=== PATIENT | female | born 1950 | race Caucasian/White ===

== ENCOUNTER 2022-03-12 00:08 | Inpatient (IN) ==
[2022-03-12] MEDS ORDERED: IOPAMIDOL 100 ML BOTTLE IV ONE (00:09)
--- NOTE | 2022-03-12 00:12 | Emergency Department Note ---
HPI General Chief complaint: Extremity Problem,Nontraumatic Stated complaint: left leg feels funny after low blood sugar Time Seen by Provider: 03/12/22 00:12 Mode of arrival: ambulatory History of Present Illness HPI Narrative: Narrative: Patient is a 71-year-old female with a complex medical history who presents to the emergency department due to concern for stroke. Patient states that she had a hypoglycemic event last night that EMS was called for, but she was able to correct her blood sugar. She states that she went to sleep at 10 PM, and then at 11 woke up and had a heaviness in her left leg. She states that this continue, and she became concerned because she has had strokes previously, so decided to come to the emergency department to be evaluated. She denies any other symptoms currently. Related Data Home Medications Medication Instructions Recorded Confirmed metoprolol succinate 50 mg capsule 50 mg PO BID 01/27/19 03/12/22 sprinkle, ext. release 24 hr ([place] Sprinkle) buspirone 5 mg tablet 5 mg PO TID 03/12/22 03/12/22 cetirizine 10 mg tablet (Zyrtec) 10 mg PO QDAY 03/12/22 03/12/22 diphenhydramine HCl 50 mg capsule 75 mg PO PRN PRN Allergic Reaction 03/12/22 03/12/22 ergocalciferol (vitamin D2) 1,250 50,000 unit PO WEEKLY 03/12/22 03/12/22 mcg (50,000 unit) capsule levocetirizine 5 mg tablet 5 mg PO QDAY 03/12/22 03/12/22 nystatin 100,000 unit/gram topical 1 applic topical BID 03/12/22 03/12/22 cream prednisone 03/12/22 Previous Rx's Medication Instructions Recorded lancets #200 ea 02/01/19 Diabetic shoes #1 ea 01/17/20 blood-glucose meter,continuous #1 ea 04/04/20 (Dexcom G6 [place] misc) blood-glucose sensor (Dexcom G6 #3 ea 04/04/20 Sensor device) blood-glucose transmitter (Dexcom #1 ea 04/04/20 G6 Transmitter device) blood sugar diagnostic (Contour #100 ea 04/05/20 Test Strips) epinephrine 0.3 mg/0.3 mL 0.3 ml IM ONCE #2 ea 12/29/20 injection, auto-injector (EpiPen 2-Bharat) nitroglycerin 0.4 mg sublingual 0.4 mg sublingual Q5-15M PRN Chest 12/29/20 tablet (Nitrostat) Pain #30 tabs pen needle, diabetic 32 gauge x #100 ea 03/01/21 5/32" (ReliOn Pen [place]) insulin aspart U-100 100 unit/mL See Rx Instructions subcut 03/19/21 (3 mL) subcutaneous pen (Novolog .COMPLEX #15 mL Flexpen U-100 Insulin aspart) insulin glargine 100 unit/mL (3 30 unit (0.3 mL) subcut QDAY #15 mL 03/19/21 mL) subcutaneous pen (Basaglar KwikPen U-100 Insulin) triamcinolone acetonide 0.025 % 1 applic topical BID Dermatitis 04/04/21 topical cream #15 grams insulin syringe,safetyneedle 0.3 #100 ea 05/01/21 mL 31 gauge x 15/64" (BD SafetyGlide Insulin Syringe) levothyroxine 125 mcg tablet 125 mcg PO QAM #30 tabs 07/02/21 (Levoxyl) ipratropium 0.5 mg-albuterol 3 mg 3 ml inhalation QID PRN shortness 07/24/21 (2.5 mg base)/3 mL nebulization of breath #90 mL soln nebulizer accessories #1 ea 07/24/21 nebulizers #1 ea 07/24/21 rivaroxaban 20 mg tablet (Xarelto) 20 mg PO QDAY #30 tabs 08/20/21 Ventolin HFA 90 mcg/actuation 2 puff inhalation QID PRN 10/22/21 aerosol inhaler (albuterol sulfate) shortness of breath or wheezing #18 grams montelukast 10 mg tablet 10 mg PO QDAY #90 tabs 12/26/21 (Singulair) Allergies Allergy/AdvReac Type Severity Reaction Status Date / Time acetaminophen [From Lortab] Allergy Severe Unknown Verified 02/05/22 08:57 ammonia Allergy Severe Unknown Verified 03/12/22 05:49 animal dander Allergy Severe Unknown Verified 02/05/22 08:57 aspirin Allergy Severe Anaphylaxis Verified 03/12/22 05:49 bacitracin [From Cortisporin] Allergy Severe Unknown Verified 02/05/22 08:57 cefixime [From Suprax] Allergy Severe Unknown Verified 02/05/22 08:57 cephalexin Allergy Severe Unknown Verified 02/05/22 08:57 clindamycin [From Cleocin] Allergy Severe Unknown Verified 02/05/22 08:57 codeine Allergy Severe Unknown Verified 02/05/22 08:57 doxycycline Allergy Severe Unknown Verified 03/12/22 05:49 Erythromycin Base Allergy Severe Unknown Verified 03/12/22 05:49 hydrocodone [From Lortab] Allergy Severe Unknown Verified 02/05/22 08:57 hydrocortisone Allergy Severe Unknown Verified 02/05/22 08:57 [From Cortisporin] Latex, Natural Rubber Allergy Severe Unknown Verified 03/12/22 05:49 lettuce Allergy Severe Unknown Verified 02/05/22 08:57 Medroxyprogesterone Allergy Severe Unknown Verified 02/05/22 08:57 [From Provera] metformin [From Glucophage] Allergy Severe Unknown Verified 03/12/22 05:49 moxifloxacin [From Avelox] Allergy Severe Anaphylaxis Verified 03/12/22 05:49 Neomycin [From Cortisporin] Allergy Severe Unknown Verified 02/05/22 08:57 nystatin Allergy Severe Unknown Verified 03/12/22 05:49 Penicillins Allergy Severe Anaphylaxis Verified 03/12/22 05:49 polymyxin B Allergy Severe Unknown Verified 02/05/22 08:57 [From Cortisporin] shellfish derived Allergy Severe Unknown Verified 03/12/22 05:49 sulfamethoxazole Allergy Severe Unknown Verified 02/05/22 08:57 [From Bactrim] triamcinolone [From Kenalog] Allergy Severe Unknown Verified 02/05/22 08:57 trimethoprim [From Bactrim] Allergy Severe Unknown Verified 03/12/22 05:49 wheat Allergy Severe Unknown Verified 03/12/22 05:49 Yeast Allergy Severe Unknown Verified 03/12/22 05:49 ampicillin Allergy Unknown Unknown Verified 03/12/22 05:49 albuterol sulfate Allergy Severe Anaphylaxis Uncoded 02/05/22 08:57 Apples Allergy Severe Unknown Uncoded 02/05/22 08:57 chemical fragrances Allergy Severe Unknown Uncoded 02/05/22 08:57 chemicals Allergy Severe Unknown Uncoded 02/05/22 08:57 cleaning agents Allergy Severe Unknown Uncoded 02/05/22 08:57 dairy products Allergy Severe Unknown Uncoded 02/05/22 08:57 darvocet Allergy Severe Unknown Uncoded 02/05/22 08:57 detergents Allergy Severe Unknown Uncoded 02/05/22 08:57 food dyes Allergy Severe Unknown Uncoded 02/05/22 08:57 herbicides Allergy Severe Unknown Uncoded 02/05/22 08:57 Hydromet syrup Allergy Severe Unknown Uncoded 02/05/22 08:57 mildew Allergy Severe Unknown Uncoded 02/05/22 08:57 MSG Allergy Severe Unknown Uncoded 02/05/22 08:57 NO BLOOD PRODUCTS Allergy Severe Unknown Uncoded 02/05/22 08:57 pesticides Allergy Severe Anaphylaxis Uncoded 03/12/22 05:49 [place] N[place]ha Allergy Severe Unknown Uncoded 02/05/22 08:57 pollen Allergy Severe Unknown Uncoded 02/05/22 08:57 preservatives Allergy Severe Unknown Uncoded 02/05/22 08:57 salmon Allergy Severe Unknown Uncoded 02/05/22 08:57 shellfish Allergy Severe Unknown Uncoded 02/05/22 08:57 smoke Allergy Severe Unknown Uncoded 02/05/22 08:57 sulfites Allergy Severe Unknown Uncoded 02/05/22 08:57 Review of Systems ROS ROS Narrative: Narrative: Constitutional: Denies fever or weakness Eyes: Denies eye pain or vision change ENT ED: Denies throat pain or rhinorrhea Cardiovascular: Denies chest pain or edema Respiratory: Denies shortness of breath or cough Gastrointestinal: Denies abdominal pain, nausea, vomiting, diarrhea or constipation Musculoskeletal: Denies back pain or myalgia Integumentary: Denies rash or lesions Neurological: Reports weakness and numbness; Denies headache, confusion, abnormal gait or dizziness Endocrine: Denies fatigue or polyuria [facility] Narrative Patient History Narrative: Narrative: Medical/Surgical/Family History All Active Problems (Updated 03/12/22 @ 06:00 by Redd Myers MD) Concern about stroke without diagnosis (Acute) Viral URI (Acute) Viral gastroenteritis (Acute) Hypothyroidism (Chronic) Anxiety (Acute) Vertigo (Acute) Hypertension (Chronic) CAD (coronary artery disease) (Chronic) Diabetic peripheral neuropathy associated with type 2 diabetes mellitus (Acute) Callus of foot (Chronic) Left wrist tendinitis (Acute) Tendinitis (Acute) Elbow pain, left (Acute) Medicare annual wellness visit, subsequent (Acute) Eczema (Acute) Dermatitis (Acute) Medication monitoring encounter (Acute) Viral syndrome (Acute) Sinusitis (Acute) Osteoporosis of femur without pathological fracture (Acute) Pupil asymmetry (Acute) Acute viral syndrome (Acute) Viral labyrinthitis syndrome (Acute) Chills (Acute) Initial Medicare annual wellness visit (Acute) Epicondylitis, lateral, left (Acute) Left shoulder pain (Acute) Insulin dependent diabetes mellitus (Chronic) Brainstem stroke (Chronic ~05/2017) Brainstem stroke (Chronic 02/04/16) CVA (cerebral vascular accident) (Chronic ~05/2015) Pneumonia (Chronic ~09/2010) Polycystic ovarian disease (Chronic) Allergic reaction (Chronic) Extrinsic allergic respiratory disease (Chronic) Stress (Chronic) Depression (Chronic) Vitamin D deficiency (Chronic) Venous insufficiency (Chronic) Lumbar back pain (Chronic) Hyperlipidemia (Chronic) Osteoarthrosis (Chronic) Polycythemia (Chronic) Carpal tunnel syndrome (Chronic) Cervical radiculopathy (Chronic) Spinal stenosis of cervical region (Chronic) Hyperuricemia (Chronic) Vertigo (Chronic) Cough due to ALEIDA inhibitor (Chronic) Asthma (Chronic) Syncope (Chronic) Posterior displaced fracture of sternal end of right clavicle, initial encounter for open fracture (Chronic) Left basal ganglia embolic stroke (Chronic) Impaired renal function disorder (Chronic) Diabetic neuropathy (Chronic) Old cerebral infarct without residual deficit (Chronic) Transient ischemic attack (Chronic) Left thyroid nodule (Chronic) Bronchitis, acute (Chronic) Degenerative disc disease, lumbar (Chronic) Angina pectoris (Chronic) Collapsed vertebra, not elsewhere classified, lumbar region, initial encounter for fracture (Chronic) Post-thoracotomy pain syndrome (Chronic) Urinary tract infection (Chronic) Diabetic peripheral neuropathy (Chronic) Tonsillith (Chronic) Sore throat (Chronic) Medical History Allergic reaction Angina pectoris Asthma Brainstem stroke (02/04/16) first Brainstem stroke (~05/2017) second Bronchitis, acute CAD (coronary artery disease) Carpal tunnel syndrome Cervical radiculopathy Collapsed vertebra, not elsewhere classified, lumbar region, initial encounter for fracture Cough due to ALEIDA inhibitor CVA (cerebral vascular accident) (~05/2015) tulio Degenerative disc disease, lumbar Depression Diabetic neuropathy Diabetic peripheral neuropathy Extrinsic allergic respiratory disease Hyperlipidemia Hypertension Hyperuricemia Hypothyroidism Impaired renal function disorder Left basal ganglia embolic stroke Left thyroid nodule Lumbar back pain Old cerebral infarct without residual deficit Osteoarthrosis Pneumonia (~09/2010) Polycystic ovarian disease Polycythemia Post-thoracotomy pain syndrome Posterior displaced fracture of sternal end of right clavicle, initial encounter for open fracture Sore throat Spinal stenosis of cervical region Stress Syncope Tendinitis Tonsillith Transient ischemic attack Urinary tract infection Venous insufficiency Vertigo Viral syndrome Vitamin D deficiency Surgical History History of cholecystectomy History of coronary artery bypass graft x 2 (09/17/18) [place];endoscopic left greater saphenous vein harvest, unroofing of long segment myocardial bridge History of surgery (~1971) ovarian wedge resection History of surgery (~09/2015) Left CTS History of surgery (~10/2015) Rt CTS Status post biopsy of thyroid gland (~10/2010) left nodule, benign Family History Other No pertinent family history Social History Smoking Status: Never smoker Alcohol Intake Frequency: does not drink Substance Use: does not use Exam Narrative Narrative: Narrative: General General appearance: Present alert and in no apparent distress; Absent anxious, appears intoxicated or sleepy Head Head: Present atraumatic and normocephalic Eye Eye: Present EOMI; Absent scleral icterus or nystagmus ENT ENT: Present mucous membranes moist; Absent nasal congestion Neck Neck: Present full ROM; Absent tenderness Chest Chest: Present normal inspection and symmetric chest wall rise Respiratory Respiratory: Present normal lung sounds bilaterally; Absent respiratory distress or accessory muscle use Cardiovascular Cardiovascular: Present regular rate, normal rhythm and normal heart sounds Adbominal Abdominal: Present soft; Absent distention Extremities Extremities: Present normal inspection and full ROM; Absent tenderness Back Back: Present normal inspection and full ROM Neurological Neurological: Present alert, oriented X3, CN II-XII intact, motor sensory deficit, reflexes normal and other (NIH: 2 (left lower extremity drift and decreased sensation)) Psychiatric Psychiatric: Present normal affect and normal mood Skin Skin: Present warm (WNL), dry and normal color Course Vital Signs Vital signs: Vital Signs Temperature 97.7 F 03/12/22 00:09 Pulse Rate 68 03/12/22 00:09 Respiratory Rate 16 03/12/22 00:09 Blood Pressure 182/68 12/13/22 00:09 Pulse Oximetry (%) 98 03/12/22 00:09 Oxygen Delivery Method 03/12/22 00:09 Temperature 97.7 F 03/12/22 00:09 Pulse Rate 71 03/12/22 04:19 Respiratory Rate 16 03/12/22 04:19 Blood Pressure 163/75 03/12/22 04:19 Pulse Oximetry (%) 97 03/12/22 04:19 Oxygen Delivery Method 03/12/22 04:27 MDM MDM Narrative Medical decision making narrative: Narrative: Patient is a 71-year-old female who presents to the emergency department due to concern for stroke. Given patient's findings of left lower extremity drift and decrease in sensation a stroke alert was called. I spoke to teleneurology who did not recommend tPA due to contraindication of current anticoagulant use. CT head does not demonstrate intracranial bleed. CTA head and neck do not show LVO. Teleneurology recommended stroke work-up in the hospital if a bed is available. I spoke to Dr. Donovan who agreed with admission for continued stroke work-up. Lab Data Result diagrams: 03/12/22 01:03 Labs: Lab Results 03/12/22 03/12/22 03/12/22 Range/Units 01:02 01:02 01:02 WBC (4.5-11.0) K/mcL RBC (3.59-5.38) M/mcL Hgb (11.2-15.7) g/dL Hct (34.1-44.9) % POC Hct (36-48) MCV (80.0-100.0) fL MCH (26.0-34.0) pg MCHC (31.0-36.0) g/dL RDW (11.5-14.5) % Plt Count (140-440) K/mcL MPV (8.8-12.5) fL Immature Gran % (Auto) (0.0-0.5) % Neut % (Auto) (38.0-78.0) % Lymph % (Auto) (15.5-49.0) % Hill % (Auto) (1.0-12.0) % Eos % (Auto) (0.0-7.0) % Baso % (Auto) (0.0-2.0) % Lymph # (Auto) (1.50-4.80) K/mcL [place] # (Auto) (0.10-0.90) K/mcL Eos # (Auto) (0.00-0.70) K/mcL Baso # (Auto) (0.00-0.30) K/mcL Immature Gran # (0.00-0.05) K/mcl Absolute Neutrophils (1.80-8.00) K/mcL POC PT 18.4 H (11.9-14.5) POC INR 1.6 H (0.8-1.2) APTT 38.6 H (20.0-37.0) sec POC Sodium (133-145) POC Potassium (3.3-5.1) POC Chloride (96-108) POC Total CO2 (22-30) POC BUN (6-20) POC Creatinine (0.6-1.2) POC Glucose (70-105) POC WB Ioniz Calcium (1.16-1.32) Total Bilirubin < 0.2 (0.1-1.0) mg/dL Direct Bilirubin 0.3 H (<0.3) mg/dL AST 5 (<32) U/L ALT 5 (<40) U/L Alkaline Phosphatase 89 (39-117) U/L Total Protein 6.8 (5.9-8.4) gm/dL Albumin 4.3 (3.2-5.2) gm/dL Globulin 2.5 (2.2-3.7) gm/dL Urine Color Urine Appearance (Clear) Urine pH (5.0-9.0) Ur Specific [place] (1.000-1.035) Urine Protein (Negative) mg/dL Urine Glucose (UA) (Negative) mg/dL Urine Ketones (Negative) mg/dL Urine Occult Blood (Negative) kianna/mcL Urine Nitrate (Negative) Urine Bilirubin (Negative) mg/dL Urine Urobilinogen mg/dL Ur Leukocyte Esterase (Negative) /uL Urine RBC (0-3) /hpf Urine WBC (0-4) /hpf Ur Squamous Epith Cells (0-4) /hpf Urine Bacteria (0) /hpf Ur Culture Indicated? POC Troponin I (0.00-0.08) 12/13/22 12/13/22 12/13/22 Range/Units 01:03 01:06 02:14 WBC 10.9 (4.5-11.0) K/mcL RBC 5.09 (3.59-5.38) M/mcL Hgb 16.3 H (11.2-15.7) g/dL Hct 44.8 (34.1-44.9) % POC Hct (36-48) MCV 88.0 (80.0-100.0) fL MCH 32.0 (26.0-34.0) pg MCHC 36.4 H (31.0-36.0) g/dL RDW 13.1 (11.5-14.5) % Plt Count 160 (140-440) K/mcL MPV 13.9 H (8.8-12.5) fL Immature Gran % (Auto) 0.2 (0.0-0.5) % Neut % (Auto) 64.3 (38.0-78.0) % Lymph % (Auto) 24.1 (15.5-49.0) % Hill % (Auto) 8.7 (1.0-12.0) % Eos % (Auto) 2.1 (0.0-7.0) % Baso % (Auto) 0.6 (0.0-2.0) % Lymph # (Auto) 2.62 (1.50-4.80) K/mcL [place] # (Auto) 0.95 H (0.10-0.90) K/mcL Eos # (Auto) 0.23 (0.00-0.70) K/mcL Baso # (Auto) 0.06 (0.00-0.30) K/mcL Immature Gran # 0.02 (0.00-0.05) K/mcl Absolute Neutrophils 7.00 (1.80-8.00) K/mcL POC PT (11.9-14.5) POC INR (0.8-1.2) APTT (20.0-37.0) sec POC Sodium (133-145) POC Potassium (3.3-5.1) POC Chloride (96-108) POC Total CO2 (22-30) POC BUN (6-20) POC Creatinine (0.6-1.2) POC Glucose (70-105) POC WB Ioniz Calcium (1.16-1.32) Total Bilirubin (0.1-1.0) mg/dL Direct Bilirubin (<0.3) mg/dL AST (<32) U/L ALT (<40) U/L Alkaline Phosphatase (39-117) U/L Total Protein (5.9-8.4) gm/dL Albumin (3.2-5.2) gm/dL Globulin (2.2-3.7) gm/dL Urine Color Lt. yellow Urine Appearance Clear (Clear) Urine pH 7.0 (5.0-9.0) Ur Specific [place] <= 1.005 (1.000-1.035) Urine Protein Negative (Negative) mg/dL Urine Glucose (UA) Negative (Negative) mg/dL Urine Ketones Negative (Negative) mg/dL Urine Occult Blood Negative (Negative) kianna/mcL Urine Nitrate Negative (Negative) Urine Bilirubin Negative (Negative) mg/dL Urine Urobilinogen Normal mg/dL Ur Leukocyte Esterase Trace A (Negative) /uL Urine RBC 0 (0-3) /hpf Urine WBC 3 (0-4) /hpf Ur Squamous Epith Cells 0 (0-4) /hpf Urine Bacteria None (0) /hpf Ur Culture Indicated? No POC Troponin I < 0.02 (0.00-0.08) 03/12/22 Range/Units 02:18 WBC (4.5-11.0) K/mcL RBC (3.59-5.38) M/mcL Hgb (11.2-15.7) g/dL Hct (34.1-44.9) % POC Hct 44.0 (36-48) MCV (80.0-100.0) fL MCH (26.0-34.0) pg MCHC (31.0-36.0) g/dL RDW (11.5-14.5) % Plt Count (140-440) K/mcL MPV (8.8-12.5) fL Immature Gran % (Auto) (0.0-0.5) % Neut % (Auto) (38.0-78.0) % Lymph % (Auto) (15.5-49.0) % Hill % (Auto) (1.0-12.0) % Eos % (Auto) (0.0-7.0) % Baso % (Auto) (0.0-2.0) % Lymph # (Auto) (1.50-4.80) K/mcL [place] # (Auto) (0.10-0.90) K/mcL Eos # (Auto) (0.00-0.70) K/mcL Baso # (Auto) (0.00-0.30) K/mcL Immature Gran # (0.00-0.05) K/mcl Absolute Neutrophils (1.80-8.00) K/mcL POC PT (11.9-14.5) POC INR (0.8-1.2) APTT (20.0-37.0) sec POC Sodium 139 (133-145) POC Potassium 4.3 (3.3-5.1) POC Chloride 102 (96-108) POC Total CO2 27.0 (22-30) POC BUN 36 H (6-20) POC Creatinine 0.8 (0.6-1.2) POC Glucose 218 H (70-105) POC WB Ioniz Calcium 1.20 (1.16-1.32) Total Bilirubin (0.1-1.0) mg/dL Direct Bilirubin (<0.3) mg/dL AST (<32) U/L ALT (<40) U/L Alkaline Phosphatase (39-117) U/L Total Protein (5.9-8.4) gm/dL Albumin (3.2-5.2) gm/dL Globulin (2.2-3.7) gm/dL Urine Color Urine Appearance (Clear) Urine pH (5.0-9.0) Ur Specific [place] (1.000-1.035) Urine Protein (Negative) mg/dL Urine Glucose (UA) (Negative) mg/dL Urine Ketones (Negative) mg/dL Urine Occult Blood (Negative) kianna/mcL Urine Nitrate (Negative) Urine Bilirubin (Negative) mg/dL Urine Urobilinogen mg/dL Ur Leukocyte Esterase (Negative) /uL Urine RBC (0-3) /hpf Urine WBC (0-4) /hpf Ur Squamous Epith Cells (0-4) /hpf Urine Bacteria (0) /hpf Ur Culture Indicated? POC Troponin I (0.00-0.08) EKG Data EKG #1: EKG attestation: Yes I reviewed and interpreted this EKG. EKG results narrative: Normal sinus rhythm with rate of 69, left axis deviation, DC of 180, QRS of 97, QT that does not appear to be prolonged, T wave flattening in leads I, aVL, V3, V4, V5, V6, and absence of ST elevation or depression. Discharge Plan Patient/Caregiver Discharge Instructions Pt seen by PRESS ASSISTANT/PA only: No Clinical Impression: Concern about stroke without diagnosis Patient Disposition: Xfer As Inpt ([facility]) Condition: Undetermined Discharge Date/Time: 03/12/22 04:19 Discharge Location: [facility]
[2022-03-12 01:07] LABS: POC INR 1.6 (0.8-1.2); POC Pro Time 18.4 (11.9-14.5)
[2022-03-12 02:16] LABS: Appearance,Urine CLEAR (Clear); Bilirubin,Urine NEGATIVE (Negative); Color,Urine LT. YELLOW; Culture Indicated,Urine No; Glucose,Urine (UA) NEGATIVE (Negative); Ketones,Urine NEGATIVE (Negative); Leukocyte Esterase,Urine TRACE /uL (Negative); Nitrate,Urine NEGATIVE (Negative); Protein,Urine NEGATIVE (Negative); Specific Gravity,Urine <= 1.005 (1.000-1.035); Urine Blood NEGATIVE ery/mcL (Negative); Urine RBC 0 /hpf (0-3); Urine Squamous Epithelial Cell 0 /hpf (0-4); Urine WBC 3 /hpf (0-4); Urobilinogen,Urine Normal
[2022-03-12 02:19] LABS: Basophils # (Auto) 0.06 K/mcL (0.00-0.30); Basophils % (Auto) 0.6 % (0.0-2.0); Eosinophils # (Auto) 0.23 K/mcL (0.00-0.70); Eosinophils % (Auto) 2.1 % (0.0-7.0); Hematocrit 44.8 % (34.1-44.9); Hemoglobin 16.3 g/dL (11.2-15.7); Lymphocytes # (Auto) 2.62 K/mcL (1.50-4.80); Lymphocytes % (Auto) 24.1 % (15.5-49.0); Mean Corpuscular HGB Conc 36.4 g/dL (31.0-36.0); Mean Platelet Volume 13.9 fL (8.8-12.5); Monocytes # (Auto) 0.95 K/mcL (0.10-0.90); Monocytes % (Auto) 8.7 % (1.0-12.0); Neutrophils % (Auto) 64.3 % (38.0-78.0); Platelet Count 160 K/mcL (140-440); RBC 5.09 M/mcL (3.59-5.38); Red Cell Distribution Width 13.1 % (11.5-14.5); WBC 10.9 K/mcL (4.5-11.0)
[2022-03-12 02:22] LABS: POC Calcium, Ionized 1.2 (1.16-1.32); POC Creatinine 0.8 (0.6-1.2); POC Potassium 4.3 (3.3-5.1)
[2022-03-12 02:25] LABS: ALT/SGPT 5 U/L (<40); AST/SGOT 5 U/L (<32); Albumin 4.3 gm/dL (3.2-5.2); Alkaline Phosphatase 89 U/L (39-117); Bilirubin,Direct 0.3 mg/dL (<0.3); Bilirubin,Total < 0.2 mg/dL (0.1-1.0); Globulin 2.5 gm/dL (2.2-3.7)
--- NOTE | 2022-03-12 02:42 | Cat Scan Report ---
CLINICAL INFORMATION: Left leg weakness. Possible CVA COMPARISON: None. TECHNIQUE: 2.5 mm helical slices were obtained in the skull base to vertex. Following reconstruction, axial reformatted images were reviewed at bone and parenchymal windows. The exam was performed using radiation dose optimization techniques including, but not limited to, automated exposure control, adjustment of the mA and/or kV according to patient size and use of iterative reconstruction technique. FINDINGS: The ventricles, sulci, fissures, and cisterns are symmetrically enlarged compatible with mild age-related atrophy. No extra-axial fluid collections are identified. Mild patchy chronic ischemic changes, in the deep cerebral white matter, are expected for age. A 6 mm remote lacunar infarct left caudate nucleus, a 6 mm remote lacunar infarct in the left yakelin a 5 mm remote lacunar infarct in the left thalamus appreciated There is no hemorrhage, mass effect, or edema. Bone windows show no osseous abnormality. IMPRESSION: Mild atrophy and chronic ischemic changes in the deep cerebral white matter-expected for age. Remote lacunar infarcts in the left thalamus left caudate nucleus and left yakelin Interpreted and Authenticated by: Don Fox 03/12/22
--- NOTE | 2022-03-12 02:52 | Cat Scan Report ---
CLINICAL INFORMATION: Muscle CVA. Left facial paresthesias COMPARISON: None. TECHNIQUE: 80 cc of Isovue-370 were injected intravenously , and using SmartPrep to maximize cerebral arterial opacification, 0.625 mm helical slices were obtained from the skull base through the cerebral vertex. Following reconstruction , sagittal, coronal and axial reformatted images were processed and reviewed at multiple windows and levels. 3D volume rendered and MIP images were acquired at a independent workstation. The exam was performed using radiation dose optimization techniques including, but not limited to, automated exposure control, adjustment of the mA and/or kV according to patient size and use of iterative reconstruction technique. FINDINGS: Calcific plaque seen within the cavernous segments of both intracranial internal carotid arteries. The intracranial internal carotid, vertebral, basilar, anterior, middle and posterior cerebral arteries and their branches are well-opacified and normal in contour and caliber without significant stenosis, occlusion or other pathology. Superficial/deep cerebral veins and deep venous sinuses are widely patent IMPRESSION: Calcific plaque in the cavernous segments of both intracranial internal carotid arteries, no occlusion or stenosis Interpreted and Authenticated by: Don Fox 03/12/22
[2022-03-12] MEDS ORDERED: ONDANSETRON 4 MG/2 ML VIAL IV PRN (02:57)
[2022-03-12] MEDS ORDERED: LACTATED RINGERS 1,000 ML IV SCH (03:00)
--- NOTE | 2022-03-12 03:33 | Cat Scan Report ---
CLINICAL INFORMATION: Left-sided facial numbness possible CVA COMPARISON: None. TECHNIQUE: 80 cc of Isovue-300 were injected intravenously followed by 40 cc of normal saline flush. Using SmartPrep, 0.625 helical slices were obtained from the thoracic aortic arch through the [place] of [place]. Following reconstruction, 2.5 mm sagittal, coronal and axial reformatted images were processed. MIPS , 3-D volume rendering and CPR images were also constructed. The exam was performed using radiation dose optimization techniques including, but not limited to, automated exposure control, adjustment of the mA and/or kV according to patient size and use of iterative reconstruction technique. FINDINGS: The thoracic aortic arch is normal diameter with minimal intimal thickening and conventional aortic branching. The brachycephalic and both subclavian arteries are widely patent. Right vertebral artery is dominant with a 50% stenosis of the right vertebral artery origin. Left vertebral artery is diminutive particularly in the intracranial portion.. There is heavy eccentric calcific plaque in both internal carotid artery origins resulting in stenoses estimated less than 50%. Both common, external carotid and remaining internal carotid arteries are widely patent. IMPRESSION: 1. Dominant right vertebral artery with a 50% stenosis at the origin. Left vertebral artery is diminutive. 2. Heavy calcific plaque in both proximal internal carotid arteries resulting in less than 50% stenoses. Consider carotid Doppler better grade the degree of stenoses 3. 3.2 cm well-circumscribed low-attenuation mass in the mid and inferior left thyroid lobes. Suggest thyroid ultrasound Interpreted and Authenticated by: Don Fox 03/12/22
[2022-03-12] MEDS ORDERED: DIPHENHYDRAMINE HCL 50 MG PO PRN (08:00)
[2022-03-12] MEDS ORDERED: NITROGLYCERIN 0.4 MG TAB.SUBL SL PRN (08:00)
--- NOTE | 2022-03-12 08:00 | Internal Med History&Physical ---
HPI History of Present Illness Patient information: Note initiated : 03/12/22 at 7:54 am Service Date, if different from initiated Date: [] Patient: Debi Santiago a 71 y/o F admitted on 03/12/22 for left leg feels funny after low blood sugar. Chief Complaint: [] History of present illness: Ms. Santiago is a 71 year old F Presented to ED because she was worried about a stroke. Patient has a history of stroke with very minor residual left-sided weakness as well as left-sided numbness. On Friday she cleaned the house which she typically does on Mondays. That evening before bed she checked her blood glucose which was 154, she took 5 units of fast acting and her 30 units of her long-acting. But an hour or so later she got alert from her Dexcom that her blood glucose of 71 and then when she got up to go to the kitchen and was fixing her sugar solution had a drop to 41. She called EMS and was able to get her blood glucose back up and she felt it was controlled then later on when her got up from recliner she says she was so weak that she could hardly get up. She said her both legs were severely weak but more so on the left. As when she came in because she was worried about stroke. Case was discussed with stroke neurologist who did not recommend tPA due to current anticoagulation use. There is thought that this could be related to hypoglycemia. CTA head and neck no LVO. Patient does complain of some headache and nausea at the time which is improved. She says she drinks water during the day. MRI ordered Patient was noted to be volume depleted on laboratory and hemoconcentrated. Even IV fluids. Review of Systems: Pertinent positives as above. Denies headache/fever/chills/vomiting/chest or abdominal pain/cough/dyspnea/diarrhea. Remaining 10 point review of system reviewed negative PFSH PFSH All Active Problems (Updated 03/12/22 @ 06:00 by Redd Myers MD) Concern about stroke without diagnosis (Acute) Viral URI (Acute) Viral gastroenteritis (Acute) Hypothyroidism (Chronic) Anxiety (Acute) Vertigo (Acute) Hypertension (Chronic) CAD (coronary artery disease) (Chronic) Diabetic peripheral neuropathy associated with type 2 diabetes mellitus (Acute) Callus of foot (Chronic) Left wrist tendinitis (Acute) Tendinitis (Acute) Elbow pain, left (Acute) Medicare annual wellness visit, subsequent (Acute) Eczema (Acute) Dermatitis (Acute) Medication monitoring encounter (Acute) Viral syndrome (Acute) Sinusitis (Acute) Osteoporosis of femur without pathological fracture (Acute) Pupil asymmetry (Acute) Acute viral syndrome (Acute) Viral labyrinthitis syndrome (Acute) Chills (Acute) Initial Medicare annual wellness visit (Acute) Epicondylitis, lateral, left (Acute) Left shoulder pain (Acute) Insulin dependent diabetes mellitus (Chronic) Brainstem stroke (Chronic ~05/2017) Brainstem stroke (Chronic 02/04/16) CVA (cerebral vascular accident) (Chronic ~05/2015) Pneumonia (Chronic ~09/2010) Polycystic ovarian disease (Chronic) Allergic reaction (Chronic) Extrinsic allergic respiratory disease (Chronic) Stress (Chronic) Depression (Chronic) Vitamin D deficiency (Chronic) Venous insufficiency (Chronic) Lumbar back pain (Chronic) Hyperlipidemia (Chronic) Osteoarthrosis (Chronic) Polycythemia (Chronic) Carpal tunnel syndrome (Chronic) Cervical radiculopathy (Chronic) Spinal stenosis of cervical region (Chronic) Hyperuricemia (Chronic) Vertigo (Chronic) Cough due to ALEIDA inhibitor (Chronic) Asthma (Chronic) Syncope (Chronic) Posterior displaced fracture of sternal end of right clavicle, initial encounter for open fracture (Chronic) Left basal ganglia embolic stroke (Chronic) Impaired renal function disorder (Chronic) Diabetic neuropathy (Chronic) Old cerebral infarct without residual deficit (Chronic) Transient ischemic attack (Chronic) Left thyroid nodule (Chronic) Bronchitis, acute (Chronic) Degenerative disc disease, lumbar (Chronic) Angina pectoris (Chronic) Collapsed vertebra, not elsewhere classified, lumbar region, initial encounter for fracture (Chronic) Post-thoracotomy pain syndrome (Chronic) Urinary tract infection (Chronic) Diabetic peripheral neuropathy (Chronic) Tonsillith (Chronic) Sore throat (Chronic) Medical History Allergic reaction Angina pectoris Asthma Brainstem stroke (02/04/16) first Brainstem stroke (~05/2017) second Bronchitis, acute CAD (coronary artery disease) Carpal tunnel syndrome Cervical radiculopathy Collapsed vertebra, not elsewhere classified, lumbar region, initial encounter for fracture Cough due to ALEIDA inhibitor CVA (cerebral vascular accident) (~05/2015) tulio Degenerative disc disease, lumbar Depression Diabetic neuropathy Diabetic peripheral neuropathy Extrinsic allergic respiratory disease Hyperlipidemia Hypertension Hyperuricemia Hypothyroidism Impaired renal function disorder Left basal ganglia embolic stroke Left thyroid nodule Lumbar back pain Old cerebral infarct without residual deficit Osteoarthrosis Pneumonia (~09/2010) Polycystic ovarian disease Polycythemia Post-thoracotomy pain syndrome Posterior displaced fracture of sternal end of right clavicle, initial encounter for open fracture Sore throat Spinal stenosis of cervical region Stress Syncope Tendinitis Tonsillith Transient ischemic attack Urinary tract infection Venous insufficiency Vertigo Viral syndrome Vitamin D deficiency Surgical History History of cholecystectomy History of coronary artery bypass graft x 2 (09/17/18) [place];endoscopic left greater saphenous vein harvest, unroofing of long segment myocardial bridge History of surgery (~1971) ovarian wedge resection History of surgery (~09/2015) Left CTS History of surgery (~10/2015) Rt CTS Status post biopsy of thyroid gland (~10/2010) left nodule, benign Family History Other No pertinent family history Social History marital status: occupational status: retired occupation: 02/2011 smoking status: Former smoker alcohol intake frequency: does not drink substance use type: does not use jeff/latter-day: [employer] MEDS/ALLERGIES Home Medications and Allergies Home Medications Medication Instructions Recorded Confirmed Type lancets #200 ea 02/01/19 03/12/22 Rx Diabetic shoes #1 ea 01/17/20 03/12/22 Rx blood-glucose meter,continuous #1 ea 04/04/20 03/12/22 Rx (Dexcom G6 [place] [employer] misc) blood-glucose sensor (Dexcom G6 #3 ea 04/04/20 03/12/22 Rx Sensor device) blood-glucose transmitter (Dexcom #1 ea 04/04/20 03/12/22 Rx G6 Transmitter device) blood sugar diagnostic (Contour #100 ea 04/05/20 03/12/22 Rx Test Strips) epinephrine 0.3 mg/0.3 mL 0.3 ml IM ONCE #2 ea 12/29/20 03/12/22 Rx injection, auto-injector (EpiPen 2-Bharat) nitroglycerin 0.4 mg sublingual 0.4 mg sublingual Q5-15M PRN Chest 12/29/20 03/12/22 Rx tablet (Nitrostat) Pain #30 tabs pen needle, diabetic 32 gauge x #100 ea 03/01/21 03/12/22 Rx 5/32" (ReliOn Pen [place]) insulin aspart U-100 100 unit/mL See Rx Instructions subcut 03/19/21 03/12/22 Rx (3 mL) subcutaneous pen (Novolog .COMPLEX #15 mL Flexpen U-100 Insulin aspart) insulin glargine 100 unit/mL (3 30 unit (0.3 mL) subcut QDAY #15 mL 03/19/21 03/12/22 Rx mL) subcutaneous pen (Basaglar KwikPen U-100 Insulin) triamcinolone acetonide 0.025 % 1 applic topical BID Dermatitis 04/04/21 03/12/22 Rx topical cream #15 grams insulin syringe,safetyneedle 0.3 #100 ea 05/01/21 03/12/22 Rx mL 31 gauge x 15/64" (BD SafetyGlide Insulin Syringe) levothyroxine 125 mcg tablet 125 mcg PO QAM #30 tabs 07/02/21 03/12/22 Rx (Levoxyl) ipratropium 0.5 mg-albuterol 3 mg 3 ml inhalation QID PRN shortness 07/24/21 03/12/22 Rx (2.5 mg base)/3 mL nebulization of breath #90 mL soln nebulizer accessories #1 ea 07/24/21 03/12/22 Rx nebulizers #1 ea 07/24/21 03/12/22 Rx rivaroxaban 20 mg tablet (Xarelto) 20 mg PO QDAY #30 tabs 08/20/21 03/12/22 Rx Ventolin HFA 90 mcg/actuation 2 puff inhalation QID PRN 10/22/21 03/12/22 Rx aerosol inhaler (albuterol sulfate) shortness of breath or wheezing #18 grams montelukast 10 mg tablet 10 mg PO QDAY #90 tabs 12/26/21 03/12/22 Rx (Singulair) buspirone 5 mg tablet 5 mg PO TID 03/12/22 03/12/22 History cetirizine 10 mg tablet (Zyrtec) 10 mg PO QDAY 03/12/22 03/12/22 History diphenhydramine HCl 50 mg capsule 75 mg PO PRN PRN Allergic Reaction 03/12/22 03/12/22 History ergocalciferol (vitamin D2) 1,250 50,000 unit PO WEEKLY 03/12/22 03/12/22 History mcg (50,000 unit) capsule levocetirizine 5 mg tablet 5 mg PO QDAY 03/12/22 03/12/22 History metoprolol tartrate 50 mg tablet 1 tab PO BID 03/12/22 03/12/22 History nystatin 100,000 unit/gram topical 1 applic topical BID 03/12/22 03/12/22 History cream prednisone 03/12/22 History Allergies Allergy/AdvReac Type Severity Reaction Status Date / Time acetaminophen [From Lortab] Allergy Severe Unknown Verified 02/05/22 08:57 ammonia Allergy Severe Unknown Verified 03/12/22 05:49 ampicillin Allergy Severe Swelling Verified 03/12/22 11:52 of Lip/Tongue/Throat animal dander Allergy Severe Unknown Verified 02/05/22 08:57 aspirin Allergy Severe Anaphylaxis Verified 03/12/22 05:49 bacitracin [From Cortisporin] Allergy Severe Unknown Verified 02/05/22 08:57 cefixime [From Suprax] Allergy Severe Anaphylaxis Verified 03/12/22 11:52 cephalexin Allergy Severe Unknown Verified 02/05/22 08:57 clindamycin [From Cleocin] Allergy Severe Unknown Verified 02/05/22 08:57 codeine Allergy Severe Unknown Verified 02/05/22 08:57 doxycycline Allergy Severe Swelling Verified 03/12/22 11:52 of the Eye Erythromycin Base Allergy Severe Swelling Verified 03/12/22 11:52 of Lip/Tongue/Throat hydrocodone [From Lortab] Allergy Severe Unknown Verified 02/05/22 08:57 hydrocortisone Allergy Severe Unknown Verified 02/05/22 08:57 [From Cortisporin] Latex, Natural Rubber Allergy Severe Unknown Verified 03/12/22 05:49 lettuce Allergy Severe Unknown Verified 02/05/22 08:57 Medroxyprogesterone Allergy Severe Unknown Verified 02/05/22 08:57 [From Provera] metformin [From Glucophage] Allergy Severe Hives Verified 03/12/22 11:52 monosodium glutamate Allergy Severe Anaphylaxis Verified 03/12/22 11:52 moxifloxacin [From Avelox] Allergy Severe Anaphylaxis Verified 03/12/22 11:52 Neomycin [From Cortisporin] Allergy Severe Unknown Verified 02/05/22 08:57 nystatin Allergy Severe Hives Verified 03/12/22 11:52 Penicillins Allergy Severe Anaphylaxis Verified 03/12/22 05:49 polymyxin B Allergy Severe Unknown Verified 02/05/22 08:57 [From Cortisporin] rosuvastatin [From Crestor] Allergy Severe Swelling Verified 03/12/22 11:52 of Lip/Tongue/Throat shellfish derived Allergy Severe Unknown Verified 03/12/22 05:49 sulfamethoxazole Allergy Severe Unknown Verified 02/05/22 08:57 [From Bactrim] triamcinolone [From Kenalog] Allergy Severe Unknown Verified 02/05/22 08:57 trimethoprim [From Bactrim] Allergy Severe Unknown Verified 03/12/22 05:49 [place] And Derivatives Allergy Intermediate Rash Verified 03/12/22 11:52 lisinopril Allergy Intermediate Cough Verified 03/12/22 11:52 wheat Allergy Intermediate Rash Verified 03/12/22 11:52 Yeast Allergy Intermediate Hives Verified 03/12/22 11:52 isosorbide AdvReac Intermediate Migraine Verified 03/12/22 11:52 diltiazem [From Cardizem] AdvReac Mild Constipatio Verified 03/12/22 11:52 n albuterol sulfate Allergy Severe Swelling Uncoded 03/12/22 11:52 of Lip/Tongue/Throat Apples Allergy Severe Unknown Uncoded 02/05/22 08:57 chemical fragrances Allergy Severe Unknown Uncoded 02/05/22 08:57 chemicals Allergy Severe Unknown Uncoded 02/05/22 08:57 cleaning agents Allergy Severe Unknown Uncoded 02/05/22 08:57 darvocet Allergy Severe Unknown Uncoded 02/05/22 08:57 detergents Allergy Severe Unknown Uncoded 02/05/22 08:57 food dyes Allergy Severe Unknown Uncoded 02/05/22 08:57 herbicides Allergy Severe Unknown Uncoded 02/05/22 08:57 Hydromet syrup Allergy Severe Unknown Uncoded 02/05/22 08:57 mildew Allergy Severe Unknown Uncoded 02/05/22 08:57 MSG Allergy Severe Unknown Uncoded 02/05/22 08:57 NO BLOOD PRODUCTS Allergy Severe Unknown Uncoded 02/05/22 08:57 pesticides Allergy Severe Anaphylaxis Uncoded 03/12/22 05:49 [place] Nesha Allergy Severe Unknown Uncoded 02/05/22 08:57 pollen Allergy Severe Unknown Uncoded 02/05/22 08:57 preservatives Allergy Severe Swelling Uncoded 03/12/22 11:52 of Lip/Tongue/Throat salmon Allergy Severe Swelling Uncoded 03/12/22 11:52 of Lip/Tongue/Throat shellfish Allergy Severe Swelling Uncoded 03/12/22 11:52 of Lip/Tongue/Throat smoke Allergy Severe Unknown Uncoded 02/05/22 08:57 sulfites Allergy Severe Swelling Uncoded 03/12/22 11:52 of Lip/Tongue/Throat dairy products Allergy Intermediate Diarrhea Uncoded 03/12/22 11:52 EXAM Constitutional Vitals: Temp Pulse Resp BP Pulse Ox O2 Del Method 97.7 F 60 16 147/60 95 03/12/22 00:09 03/12/22 06:00 03/12/22 06:00 03/12/22 06:00 03/12/22 06:00 03/12/22 06:00 Exam: General: Alert, Awake, No acute Distress Eyes/N/T: EOMI, PERRL, dry MM Head/Neck: neck supple, normocephalic atraumatic CV: RRR, No murmurs, normal s1/s2 Pulm: Clear b/l, no wheezing/rhonchi/rales Abd: soft, nontender, +BS x4 Ext: no clubbing/cyanosis/edema Neuro: Alert, moves all extremities, CN 2-12 grossly intact, mild decrease sensation left side Skin: warm/dry DATA Data Completed and Pending Labs: Labs from last 24 hours 03/12/22 03/12/22 03/12/22 02:18 02:14 01:06 WBC RBC Hgb Hct POC Hct 44.0 MCV MCH MCHC RDW Plt Count MPV Immature Gran % (Auto) Neut % (Auto) Lymph % (Auto) [place] % (Auto) Eos % (Auto) Baso % (Auto) Lymph # (Auto) [place] # (Auto) Eos # (Auto) Baso # (Auto) Immature Gran # Absolute Neutrophils POC PT POC INR APTT POC Sodium 139 POC Potassium 4.3 POC Chloride 102 POC Total CO2 27.0 POC BUN 36 H POC Creatinine 0.8 POC Glucose 218 H POC WB Ioniz Calcium 1.20 Total Bilirubin Direct Bilirubin AST ALT Alkaline Phosphatase Total Protein Albumin Globulin Urine Color Lt. yellow Urine Appearance Clear Urine pH 7.0 Ur Specific [place] <= 1.005 Urine Protein Negative Urine Glucose (UA) Negative Urine Ketones Negative Urine Occult Blood Negative Urine Nitrate Negative Urine Bilirubin Negative Urine Urobilinogen Normal Ur Leukocyte Esterase Trace A Urine RBC 0 Urine WBC 3 Ur Squamous Epith Cells 0 Urine Bacteria None Ur Culture Indicated? No POC Troponin I < 0.02 03/12/22 03/12/22 03/12/22 01:03 01:02 01:02 WBC 10.9 RBC 5.09 Hgb 16.3 H Hct 44.8 POC Hct MCV 88.0 MCH 32.0 MCHC 36.4 H RDW 13.1 Plt Count 160 MPV 13.9 H Immature Gran % (Auto) 0.2 Neut % (Auto) 64.3 Lymph % (Auto) 24.1 [place] % (Auto) 8.7 Eos % (Auto) 2.1 Baso % (Auto) 0.6 Lymph # (Auto) 2.62 [place] # (Auto) 0.95 H Eos # (Auto) 0.23 Baso # (Auto) 0.06 Immature Gran # 0.02 Absolute Neutrophils 7.00 POC PT 18.4 H POC INR 1.6 H APTT POC Sodium POC Potassium POC Chloride POC Total CO2 POC BUN POC Creatinine POC Glucose POC WB Ioniz Calcium Total Bilirubin < 0.2 Direct Bilirubin 0.3 H AST 5 ALT 5 Alkaline Phosphatase 89 Total Protein 6.8 Albumin 4.3 Globulin 2.5 Urine Color Urine Appearance Urine pH Ur Specific [place] Urine Protein Urine Glucose (UA) Urine Ketones Urine Occult Blood Urine Nitrate Urine Bilirubin Urine Urobilinogen Ur Leukocyte Esterase Urine RBC Urine WBC Ur Squamous Epith Cells Urine Bacteria Ur Culture Indicated? POC Troponin I 03/12/22 01:02 WBC RBC Hgb Hct POC Hct MCV MCH MCHC RDW Plt Count MPV Immature Gran % (Auto) Neut % (Auto) Lymph % (Auto) [place] % (Auto) Eos % (Auto) Baso % (Auto) Lymph # (Auto) [place] # (Auto) Eos # (Auto) Baso # (Auto) Immature Gran # Absolute Neutrophils POC PT POC INR APTT 38.6 H POC Sodium POC Potassium POC Chloride POC Total CO2 POC BUN POC Creatinine POC Glucose POC WB Ioniz Calcium Total Bilirubin Direct Bilirubin AST ALT Alkaline Phosphatase Total Protein Albumin Globulin Urine Color Urine Appearance Urine pH Ur Specific [place] Urine Protein Urine Glucose (UA) Urine Ketones Urine Occult Blood Urine Nitrate Urine Bilirubin Urine Urobilinogen Ur Leukocyte Esterase Urine RBC Urine WBC Ur Squamous Epith Cells Urine Bacteria Ur Culture Indicated? POC Troponin I A/P Narrative A/P Narrative: A: *Strokelike symptoms: suspected 2/2 hypoglycemia and over exertion and volume depletion vs r/o cva *h/o CVA *DM w/neuropathy, hypoglycemia event prior to admit: *Volume depletion with hemoconcentration: *CAD w/cabg: states has been on xaralto since surgery *Depression/anxiety: *Hypothyroidism: *HTN: Elevated on admit -On Toprol at home P: -IVF, uop -lipid panel, statin -MRI pending -home basal(at decreased dose) and SSI monitor blood glucose closely -a1c - -cont BB, monitor bp closely -PT/OT -ppx: home xaralto Time Spent With Patient Time: Total time spent is greater than 50% in coordination of care (as documented) at patient's floor/unit and/or counseling patient: Total time spent with greater than 50% in coordination of care (as documented) at patient's floor/unit and/or counseling patient:: Greater than 70 minutes QUALITY Stroke Onset of Symptoms Date: 03/11/22 Onset of Symptoms Time: 22:00 Symptom Onset Unknown: Yes VTE Deep Vein Thrombosis/Pulmonary Embolism Present on Admission: No
[2022-03-12] MEDS ORDERED: MAGNESIUM SULFATE 2 GM/50 ML BAG IV PRN (08:01)
[2022-03-12] MEDS ORDERED: SENNOSIDES 1 TABLET PO PRN (08:01)
[2022-03-12] MEDS ORDERED: POTASSIUM CHLORIDE 20 MEQ TABLET PO PRN ×2 (08:01)
[2022-03-12] MEDS ORDERED: POTASSIUM CHLORIDE 40 MEQ in DEXTROSE 5% IN WATER 500 ML IV PRN (08:01)
[2022-03-12] MEDS ORDERED: POLYETHYLENE GLYCOL 3350 17 GM PACKET PO PRN (08:01)
[2022-03-12] MEDS ORDERED: ACETAMINOPHEN 325 MG TABLET PO PRN (08:02)
[2022-03-12] MEDS ORDERED: IPRATROPIUM/ALBUTEROL 3 ML AMPUL.NEB NEB PRN (08:02)
[2022-03-12] MEDS ORDERED: METOPROLOL SUCCINATE 50 MG TAB.XL.24H PO SCH (09:00)
[2022-03-12] MEDS ORDERED: DOCUSATE SODIUM 100 MG CAPSULE PO SCH (09:00)
[2022-03-12] MEDS ORDERED: INSULIN GLARGINE, HUMAN 1 UNIT/0.01 ML SQ SCH (09:00)
[2022-03-12] MEDS ORDERED: LEVOTHYROXINE 125 MCG TABLET PO SCH (09:00)
[2022-03-12] MEDS ORDERED: NON FORMULARY MEDICATION 1 DOSE MISCELL (Insulin Glargine [Basaglar Kwikpen U-100 Insulin] SUB-Q SCH (09:00)
[2022-03-12 09:07] LABS: HDL Cholesterol 26 mg/dL (>40); Non-HDL Cholesterol 186 mg/dL (<130); Triglycerides 1326 mg/dL (<150)
[2022-03-12] MEDS: busPIRone 5 MG TABLET PO SCH ×2 (09:20→14:46)
[2022-03-12] MEDS: RIVAROXABAN 20 MG TABLET PO SCH ×2 (09:20→09:27)
[2022-03-12] MEDS: MONTELUKAST 10 MG TABLET PO SCH ×2 (09:21→09:27)
[2022-03-12 09:22] LABS: Estimated Average Glucose(eAG) 134 mg/dL; Hemoglobin A1C 6.3 % Hgb (4.0-6.0)
--- NOTE | 2022-03-12 11:40 | Magnetic Resonance Report ---
CLINICAL INFORMATION: Left leg weakness COMPARISON: None. TECHNIQUE:Sagittal T1 FLAIR, axial T1 FLAIR, T2 FLAIR propeller, T2 propeller, gradient, diffusion, ADC and coronal T2 weighted images were acquired. FINDINGS: The ventricles, sulci, fissures and cisterns are symmetrically enlarged compatible with mild age-related atrophy extra-axial fluid collections or mass are appreciated. Mild patchy chronic ischemic changes in the deep cerebral white matter typical for age. There is a 3 mm remote lacunar infarct in the left thalamus and a 4 mm lacunar infarct in the left yakelin. There are no regions of restricted diffusion, edema or hemorrhage or other acute finding. The signal void in intracerebral arteries, extra-axial cranial nerves, pituitary, orbits and paranasal sinuses are all normal. IMPRESSION: Mild atrophy with chronic ischemic changes in the deep cerebral white matter remote lacunar infarcts in the left thalamus and left yakelin. There is no evidence of acute infarct or other acute finding. Interpreted and Authenticated by: Don Fox 03/12/22
--- NOTE | 2022-03-12 12:21 | Discharge Summary ---
Discharge Provider Provider IMPORTANT FOLLOW-UP INFORMATION FOR PCP: Patient information: Note initiated : 03/12/22 at 12:15 pm Service Date, if different from initiated Date: [] Patient: Debi Santiago a 71 y/o F admitted on 03/12/22 for left leg feels funny after low blood sugar. Chief Complaint: [] Date of admission: 03/12/22 04:19 Discharge date: 03/12/22 Primary care physician: Kenneth Lyle MD Consults: 03/12/22 Consult to Physician [CONS] Stat Comment: Consulting Provider: Pancho Donovan Reason For Exam: Physician to Consult 03/12/22 00:35 Consult to Physician [CONS] Stat Comment: Consulting Provider: Tel[facility]berly Reason For Exam: Physician to Consult COURSE Hospital Course Hospital course: History of present illness: Ms. Santiago is a 71 year old F Presented to ED because she was worried about a stroke. Patient has a history of stroke with very minor residual left-sided weakness as well as left-sided numbness. On Friday she cleaned the house which she typically does on Mondays. That evening before bed she checked her blood glucose which was 154, she took 5 units of fast acting and her 30 units of her long-acting. But an hour or so later she got alert from her Dexcom that her blood glucose of 71 and then when she got up to go to the kitchen and was fixing her sugar solution had a drop to 41. She called EMS and was able to get her blood glucose back up and she felt it was controlled then later on when her got up from recliner she says she was so weak that she could hardly get up. She said her both legs were severely weak but more so on the left. As when she came in because she was worried about stroke. Case was discussed with stroke neurologist who did not recommend tPA due to current anticoagulation use. There is thought that this could be related to hypoglycemia. CTA head and neck no LVO. Patient does complain of some headache and nausea at the time which is improved. She says she drinks water during the day. MRI ordered Patient was noted to be volume depleted on laboratory and hemoconcentrated. Even IV fluids. MRI done which showed no acute ischemic stroke. Patient responding current therapies quicker than expected and work-up for stroke unremarkable. Likely cause of her symptoms was probably overexertion from her housecleaning causing dehydration and hypoglycemia. Patient feeling better and stable for discharge. A: *Strokelike symptoms: likely 2/2 hypoglycemia and over exertion and volume depletion -MRI no acute cva *h/o CVA *DM w/neuropathy, hypoglycemia event prior to admit: *Volume depletion with hemoconcentration: *CAD w/cabg: states has been on xaralto since surgery *Depression/anxiety: *Hypothyroidism: *HTN: Elevated on admit -On Toprol at home *Hyperlipidemia: -Start statin Discharge diagnosis: Weakness, volume depletion hypoglycemia Secondary discharge diagnosis: History of stroke diabetes with neuropathy CAD with CABG depression anxiety hypothyroidism hypertension Time Spent with Patient Time attestation: Total time spent providing and/or coordinating discharge services: Time spent: Greater than 30 minutes EXAM Constitutional Vitals: Temp Pulse Resp BP Pulse Ox O2 Del Method 97.8 F 61 15 163/67 95 03/12/22 08:01 03/12/22 06:01 03/12/22 10:02 03/12/22 10:02 03/12/22 06:01 03/12/22 10:02 Discharge Data Data Completed and Pending Labs on day of discharge: Labs from last 24 hours 03/12/22 03/12/22 03/12/22 02:18 02:14 01:06 WBC RBC Hgb Hct POC Hct 44.0 MCV MCH MCHC RDW Plt Count MPV Immature Gran % (Auto) Neut % (Auto) Lymph % (Auto) [place] % (Auto) Eos % (Auto) Baso % (Auto) Lymph # (Auto) [place] # (Auto) Eos # (Auto) Baso # (Auto) Immature Gran # Absolute Neutrophils POC PT POC INR APTT POC Sodium 139 POC Potassium 4.3 POC Chloride 102 POC Total CO2 27.0 POC BUN 36 H POC Creatinine 0.8 POC Glucose 218 H Hemoglobin A1c Estim Average Glucose POC WB Ioniz Calcium 1.20 Total Bilirubin Direct Bilirubin AST ALT Alkaline Phosphatase Total Protein Albumin Globulin Triglycerides Cholesterol LDL Cholesterol, Calc Non-HDL Cholesterol HDL Cholesterol Urine Color Lt. yellow Urine Appearance Clear Urine pH 7.0 Ur Specific [place] <= 1.005 Urine Protein Negative Urine Glucose (UA) Negative Urine Ketones Negative Urine Occult Blood Negative Urine Nitrate Negative Urine Bilirubin Negative Urine Urobilinogen Normal Ur Leukocyte Esterase Trace A Urine RBC 0 Urine WBC 3 Ur Squamous Epith Cells 0 Urine Bacteria None Ur Culture Indicated? No POC Troponin I < 0.02 03/12/22 03/12/22 03/12/22 01:03 01:02 01:02 WBC 10.9 RBC 5.09 Hgb 16.3 H Hct 44.8 POC Hct MCV 88.0 MCH 32.0 MCHC 36.4 H RDW 13.1 Plt Count 160 MPV 13.9 H Immature Gran % (Auto) 0.2 Neut % (Auto) 64.3 Lymph % (Auto) 24.1 [place] % (Auto) 8.7 Eos % (Auto) 2.1 Baso % (Auto) 0.6 Lymph # (Auto) 2.62 [place] # (Auto) 0.95 H Eos # (Auto) 0.23 Baso # (Auto) 0.06 Immature Gran # 0.02 Absolute Neutrophils 7.00 POC PT 18.4 H POC INR 1.6 H APTT POC Sodium POC Potassium POC Chloride POC Total CO2 POC BUN POC Creatinine POC Glucose Hemoglobin A1c Estim Average Glucose POC WB Ioniz Calcium Total Bilirubin < 0.2 Direct Bilirubin 0.3 H AST 5 ALT 5 Alkaline Phosphatase 89 Total Protein 6.8 Albumin 4.3 Globulin 2.5 Triglycerides Cholesterol LDL Cholesterol, Calc Non-HDL Cholesterol HDL Cholesterol Urine Color Urine Appearance Urine pH Ur Specific [place] Urine Protein Urine Glucose (UA) Urine Ketones Urine Occult Blood Urine Nitrate Urine Bilirubin Urine Urobilinogen Ur Leukocyte Esterase Urine RBC Urine WBC Ur Squamous Epith Cells Urine Bacteria Ur Culture Indicated? POC Troponin I 03/12/22 03/12/22 01:02 00:36 WBC RBC Hgb Hct POC Hct MCV MCH MCHC RDW Plt Count MPV Immature Gran % (Auto) Neut % (Auto) Lymph % (Auto) [place] % (Auto) Eos % (Auto) Baso % (Auto) Lymph # (Auto) [place] # (Auto) Eos # (Auto) Baso # (Auto) Immature Gran # Absolute Neutrophils POC PT POC INR APTT 38.6 H POC Sodium POC Potassium POC Chloride POC Total CO2 POC BUN POC Creatinine POC Glucose Hemoglobin A1c 6.3 H Estim Average Glucose 134 POC WB Ioniz Calcium Total Bilirubin Direct Bilirubin AST ALT Alkaline Phosphatase Total Protein Albumin Globulin Triglycerides 1326 H Cholesterol 212 H LDL Cholesterol, Calc TNP Non-HDL Cholesterol 186 H HDL Cholesterol 26 L Urine Color Urine Appearance Urine pH Ur Specific [place] Urine Protein Urine Glucose (UA) Urine Ketones Urine Occult Blood Urine Nitrate Urine Bilirubin Urine Urobilinogen Ur Leukocyte Esterase Urine RBC Urine WBC Ur Squamous Epith Cells Urine Bacteria Ur Culture Indicated? POC Troponin I Discharge Plan Patient/Caregiver Discharge Instructions Activity: increase activity as tolerated Diet: Consistent Carbohydrate Instructions: Atorvastatin (By mouth), Dehydration (GEN), Type 2 Diabetes in the Older Adult (GEN) Activity Restrictions/Additional Instructions: Increase activity as tolerated, continue with a consistent carbohydrate diet. Your prescription has been electronically sent to [facility]. Follow up with your Primary Care Physician as scheduled. If you have any questions regarding Diabetes or Insulin please contact our Out patient Negative Turner, Tatiana Alarcon at Ext. [phone] This discharge packet is provided to you to help keep you informed about your care. We want to ensure you get everything you need when you go home. You will also be receiving a call from us in a few days to follow up with you and see how you are doing since your discharge. This gives us a chance to listen to any concerns you maybe experiencing since you were discharged or any additional needs you may have, as well as providing us feedback on your care experience. We strive to always provide excellent care and thank you for your feedback and for choosing [facility]. Prescriptions: New atorvastatin [Lipitor] 40 mg tablet 40 mg PO QHS Qty: 30 0RF Continued (DME) lancets misc See Rx Instructions .ROUTE .MEDSUPPLY Qty: 200 11RF Rx Instructions: As directed (DME) Diabetic shoes Qty: 1 0RF Rx Instructions: As directed (DME) Dexcom G6 Orchestra Conductor Misc See Rx Instructions .ROUTE .MEDSUPPLY Qty: 1 0RF Rx Instructions: As directed (DME) Dexcom G6 Sensor Device See Rx Instructions .ROUTE .MEDSUPPLY Qty: 3 0RF Rx Instructions: As directed (DME) Dexcom G6 Transmitter Device See Rx Instructions .ROUTE .MEDSUPPLY Qty: 1 0RF Rx Instructions: As directed (DME) Contour Test Strips Strip See Rx Instructions .ROUTE .MEDSUPPLY Qty: 100 12RF Rx Instructions: USe to test blood glucose three times daily epinephrine [EpiPen 2-Bharat] 0.3 mg/0.3 mL auto-injector 0.3 ml IM ONCE Qty: 2 1RF nitroglycerin [Nitrostat] 0.4 mg tablet, sublingual 0.4 mg SUBLINGUAL Q5-15M PRN (Reason: Chest Pain) Qty: 30 0RF (DME) pen needle, diabetic [ReliOn Pen [place]] 32 gauge x 5/32" needle See Rx Instructions .ROUTE .MEDSUPPLY Qty: 100 6RF Rx Instructions: Use with insulin twice daily insulin aspart U-100 [Novolog Flexpen U-100 Insulin] 100 unit/mL (3 mL) in sulin pen See Rx Instructions SUB-Q .COMPLEX Qty: 15 7RF Rx Instructions: subcut; Use per sliding scale Basaglar KwikPen U-100 Insulin 100 unit/mL (3 mL) insulin pen 30 unit SUB-Q QDAY Qty: 15 12RF triamcinolone acetonide 0.025 % cream 1 applic TOPICAL BID Qty: 15 0RF (DME) BD SafetyGlide Insulin Syringe 0.3 mL 31 gauge x 15/64" syringe See Rx Instructions .ROUTE .MEDSUPPLY Qty: 100 12RF Rx Instructions: Use to inject insulin 3-4 times daily levothyroxine [Levoxyl] 125 mcg tablet 125 mcg PO QAM Qty: 30 11RF ipratropium-albuterol 0.5 mg-3 mg(2.5 mg base)/3 mL solution for nebulization 3 ml INHALATION QID PRN (Reason: shortness of breath) Qty: 90 0RF (DME) nebulizers Misc See Rx Instructions .Route Qty: 1 0RF Rx Instructions: Use up to 4 times per day (DME) nebulizer accessories Misc See Rx Instructions .Route Qty: 1 0RF Rx Instructions: As directed Xarelto 20 mg tablet 20 mg PO QDAY Qty: 30 12RF albuterol sulfate [Ventolin HFA] 90 mcg/actuation HFA aerosol inhaler 2 puff INHALATION QID PRN (Reason: shortness of breath or wheezing) Qty: 18 11RF Rx Instructions: BRAND NAME VENTOLIN ONLY montelukast [Singulair] 10 mg tablet 10 mg PO QDAY Qty: 90 1RF cetirizine [Zyrtec] 10 mg Tablet 10 mg PO QDAY buspirone 5 mg tablet 5 mg PO TID nystatin 100,000 unit/gram cream 1 applic topical BID Rx Instructions: APPLY TO AFFECTED AREA TWICE DAILY ergocalciferol (vitamin D2) 1,250 mcg (50,000 unit) capsule 50,000 unit PO WEEKLY Rx Instructions: TAKE ONE CAPSULE BY MOUTH WEEKLY diphenhydramine HCl 50 mg Capsule 75 mg PO PRN PRN (Reason: Allergic Reaction) levocetirizine 5 mg Tablet 5 mg PO QDAY metoprolol tartrate 50 mg tablet 1 tab PO BID Follow Up Plan Follow up with: Kenneth Lyle MD [Primary Care Provider] - 03/22/22 10:00 am (This appointment is with Quinten Kitchen) Patient Disposition: Home, Self-Care Prognosis: Fair Overall status at discharge: patient is progressing back to baseline Discharge Orders: Discharge Order (Routine); Ordered 03/12/22 Ordered By: Pancho Donovan [facility] VTE Deep Vein Thrombosis/Pulmonary Embolism Present on Admission: No
[2022-03-12] MEDS ORDERED: 0.9 % SODIUM CHLORIDE 10 ML SYRINGE IV SCH (14:00)
[2022-03-12] MEDS ORDERED: MONTELUKAST 10 MG TABLET PO SCH (21:00)
[2022-03-12] MEDS ORDERED: RIVAROXABAN 20 MG TABLET PO SCH (21:00)
[2022-03-12] MEDS ORDERED: ATORVASTATIN 20 MG TABLET PO SCH (21:00)
--- NOTE | 2022-03-13 18:26 | EKG ---
[facility] Test Date: 2022-03-12 Pat Name: Debi Santiago Department: ED Room: Gender: Female Embedded Linux Developer: SB : [id number] Requested By: Redd Myers Order Number: [id number] Reading MD: Herbie Mast Measurements Intervals [place] Rate: 69 P: 33 CO: 180 QRS: -40 QRSD: 97 T: 83 QT: QTc: 0 Interpretive Statements Sinus rhythm Left axis deviation Low voltage, precordial leads Consider anterior infarct Electronically Signed On 03-13-2022 18:26:03 PST by Herbie Mast [id number]
== END 2022-03-12 15:30 | disposition home or self-care (01) | DRG 641 ==
LOC: ED 00:08 → ICU 04:19
PROVIDERS: ADMIT Internal Medicine; ATTEND Internal Medicine

== ENCOUNTER 2024-02-02 09:03 | Observation (INO) ==
[2024-02-02] MEDS ORDERED: IOPAMIDOL 100 ML BOTTLE IV ONE (09:04)
[2024-02-02 09:51] LABS: Basophils # (Auto) 0.02 K/mcL (0.00-0.30); Basophils % (Auto) 0.4 % (0.0-2.0); Eosinophils # (Auto) 0.12 K/mcL (0.00-0.70); Eosinophils % (Auto) 2.2 % (0.0-7.0); Hematocrit 46.4 % (34.1-44.9); Hemoglobin 15.5 g/dL (11.2-15.7); Lymphocytes # (Auto) 1.32 K/mcL (1.50-4.80); Lymphocytes % (Auto) 23.7 % (15.5-49.0); Mean Cell Volume 91.9 fL (80.0-100.0); Mean Corpuscular HGB Conc 33.4 g/dL (31.0-36.0); Neutrophils % (Auto) 64.7 % (38.0-78.0); Platelet Count 111 K/mcL (140-440); RBC 5.05 M/mcL (3.59-5.38); Red Cell Distribution Width 12.4 % (11.5-14.5); WBC 5.6 K/mcL (4.5-11.0)
[2024-02-02 10:06] LABS: Partial Thromboplastin Time 28.4 sec (20.0-37.0)
[2024-02-02 10:09] LABS: INR 1.2 (0.9-1.1); Prothrombin Time 15.7 sec (11.9-14.5)
[2024-02-02 10:13] LABS: ALT/SGPT 58 U/L (<40); AST/SGOT 57 U/L (<32); Albumin 4.5 gm/dL (3.2-5.2); Albumin/Globulin Ratio 1.6 (1.0-2.3); Alkaline Phosphatase 86 U/L (39-117); Bilirubin,Total 0.5 mg/dL (0.1-1.0); Blood Urea Nitrogen 24 mg/dL (8-23); Calcium 9.8 mg/dL (8.6-10.4); Carbon Dioxide 26 mmol/L (22-30); Chloride 101 mmol/L (96-108); Globulin 2.8 gm/dL (2.2-3.7); Glomerular Filtration Rate 73; Glucose 177 mg/dL (70-105); Potassium 4.1 mmol/L (3.3-5.1); Sodium 141 mmol/L (133-145)
[2024-02-02 11:01] LABS: Appearance,Urine Clear (Clear); Bilirubin,Urine Negative (Negative); Color,Urine Yellow; Glucose,Urine (UA) Negative (Negative); Ketones,Urine Negative (Negative); Leukocyte Esterase,Urine Negative /uL (Negative); Nitrate,Urine Negative (Negative); PH,Urine 7.5 (5.0-9.0); Protein,Urine Negative (Negative); Specific Gravity,Urine 1.015 (1.000-1.035); Urine Blood Negative ery/mcL (Negative); Urine RBC 0 /hpf (0-3); Urine Squamous Epithelial Cell 0 /hpf (0-4); Urine WBC 0 /hpf (0-4); Urobilinogen,Urine Normal
[2024-02-02] MEDS: CLOPIDOGREL 75 MG TABLET PO ONE (11:35)
[2024-02-02] MEDS ORDERED: ONDANSETRON 4 MG/2 ML VIAL IV PRN (12:59)
[2024-02-02] MEDS ORDERED: POLYETHYLENE GLYCOL 3350 17 GM PACKET PO PRN (12:59)
[2024-02-02] MEDS ORDERED: MAGNESIUM SULFATE 2 GM/50 ML BAG IV PRN (12:59)
[2024-02-02] MEDS ORDERED: DEXTROSE 31 GM ORAL.SUSP PO PRN (12:59)
[2024-02-02] MEDS ORDERED: DEXTROSE 50% 50 ML VIAL IV PRN (12:59)
[2024-02-02] MEDS ORDERED: POTASSIUM CHLORIDE 40 MEQ in DEXTROSE 5% IN WATER 500 ML IV PRN (12:59)
[2024-02-02] MEDS ORDERED: POTASSIUM CHLORIDE 20 MEQ TABLET PO PRN ×2 (12:59)
[2024-02-02] MEDS ORDERED: SENNOSIDES 1 TABLET PO PRN (12:59)
[2024-02-02] MEDS ORDERED: IPRATROPIUM/ALBUTEROL 3 ML AMPUL.NEB NEB PRN (12:59)
[2024-02-02] MEDS ORDERED: METOCLOPRAMIDE 10 MG/2 ML VIAL IV PRN (12:59)
[2024-02-02 14:14] LABS: HDL Cholesterol 42 mg/dL (>40); LDL Cholesterol,Calculated 46 mg/dL (<100); Non-HDL Cholesterol 60 mg/dL (<130); Triglycerides 71 mg/dL (<150)
[2024-02-02] MEDS: INSULIN LISPRO 1 UNIT/0.01 ML UNIT SQ SCH (16:11)
[2024-02-02] MEDS: 0.9 % SODIUM CHLORIDE 1,000 ML IV ONE (16:12)
[2024-02-02] MEDS ORDERED: TRIAMCINOLONE CREAM 0.1% 15G 1 DOSE TUBE TOPICAL PRN (17:29)
[2024-02-02] MEDS ORDERED: NITROGLYCERIN 0.4 MG TAB.SUBL SL PRN (17:36)
[2024-02-02] MEDS ORDERED: diphenhydrAMINE 25 MG CAPSULE PO PRN (17:37)
[2024-02-02] MEDS ORDERED: diphenhydrAMINE 50 MG/ML VIAL IV PRN (17:44)
[2024-02-02] MEDS ORDERED: DOCUSATE SODIUM 100 MG CAPSULE PO SCH (21:00)
[2024-02-02] MEDS: ATORVASTATIN 40 MG TABLET PO SCH (22:08)
[2024-02-02] MEDS: busPIRone 5 MG TABLET PO SCH (22:09)
[2024-02-03] MEDS: ACETAMINOPHEN 325 MG TABLET PO PRN (04:04)
[2024-02-03 06:41] LABS: ALT/SGPT 43 U/L (<40); AST/SGOT 34 U/L (<32); Alkaline Phosphatase 58 U/L (39-117); Bilirubin,Direct 0.3 mg/dL (<0.3); Bilirubin,Total 0.7 mg/dL (0.1-1.0); Blood Urea Nitrogen 15 mg/dL (8-23); Calcium 8.5 mg/dL (8.6-10.4); Carbon Dioxide 27 mmol/L (22-30); Chloride 104 mmol/L (96-108); Glomerular Filtration Rate 86; Glucose 200 mg/dL (70-105); Lactate Dehydrogenase 165 U/L (135-225); Phosphorous 2.1 mg/dL (2.5-4.5); Potassium 3.8 mmol/L (3.3-5.1); Sodium 140 mmol/L (133-145); Triglycerides 79 mg/dL (<150); Uric Acid 4.1 mg/dL (2.5-8.0)
[2024-02-03] MEDS: LEVOTHYROXINE 125 MCG TABLET PO SCH (07:50)
[2024-02-03] MEDS: INSULIN GLARGINE, HUMAN 1 UNIT/0.01 ML SQ SCH (09:35)
[2024-02-03] MEDS: RIVAROXABAN 20 MG TABLET PO SCH (09:36)
[2024-02-03] MEDS: METOPROLOL TARTRATE 50 MG TABLET PO SCH (09:36)
[2024-02-03] MEDS: MONTELUKAST 10 MG TABLET PO SCH (09:36)
[2024-02-03] MEDS: CLOPIDOGREL 75 MG TABLET PO SCH (09:37)
[2024-02-03] MEDS: LOSARTAN 50 MG TABLET PO SCH (09:37)
== END 2024-02-03 12:49 | disposition home or self-care (01) ==
LOC: ED 09:03 → ICU 09:03
PROVIDERS: ADMIT Internal Medicine; ATTEND Internal Medicine

== ENCOUNTER 2024-10-17 07:48 | Observation (INO) ==
[2024-10-17] MEDS ORDERED: IOPAMIDOL 100 ML BOTTLE IV ONE (07:49)
[2024-10-17 09:32] LABS: Basophils # (Auto) 0.02 K/mcL (0.00-0.30); Basophils % (Auto) 0.3 % (0.0-2.0); Eosinophils # (Auto) 0.15 K/mcL (0.00-0.70); Eosinophils % (Auto) 2.0 % (0.0-7.0); Hematocrit 44.0 % (34.1-44.9); Hemoglobin 14.8 g/dL (11.2-15.7); Lymphocytes # (Auto) 1.27 K/mcL (1.50-4.80); Lymphocytes % (Auto) 17.3 % (15.5-49.0); Mean Corpuscular HGB Conc 33.6 g/dL (31.0-36.0); Monocytes # (Auto) 0.67 K/mcL (0.10-0.90); Monocytes % (Auto) 9.1 % (1.0-12.0); Neutrophils % (Auto) 71.2 % (38.0-78.0); Platelet Count 140 K/mcL (140-440); RBC 4.83 M/mcL (3.59-5.38); WBC 7.3 K/mcL (4.5-11.0)
[2024-10-17 09:48] LABS: INR 1.2 (0.9-1.1); Prothrombin Time 15.6 sec (11.9-14.5)
[2024-10-17 09:52] LABS: ALT/SGPT 27 U/L (<40); AST/SGOT 23 U/L (<32); Albumin 4.1 gm/dL (3.2-5.2); Albumin/Globulin Ratio 1.5 (1.0-2.3); Alkaline Phosphatase 106 U/L (39-117); Anion Gap 13.0 (8.0-16.0); Bilirubin,Total 0.5 mg/dL (0.1-1.0); Blood Urea Nitrogen 20 mg/dL (8-23); Calcium 10.2 mg/dL (8.6-10.4); Carbon Dioxide 25 mmol/L (22-30); Chloride 100 mmol/L (96-108); Globulin 2.7 gm/dL (2.2-3.7); Glucose 256 mg/dL (70-105); Potassium 4.1 mmol/L (3.3-5.1); Sodium 138 mmol/L (133-145)
[2024-10-17 10:03] LABS: Partial Thromboplastin Time 31.7 sec (20.0-37.0)
[2024-10-17] MEDS ORDERED: DEXTROSE 50% 50 ML VIAL IV PRN (13:00)
[2024-10-17] MEDS ORDERED: ONDANSETRON 4 MG/2 ML VIAL IV PRN (13:00)
[2024-10-17] MEDS ORDERED: DEXTROSE 31 GM ORAL.SUSP PO PRN (13:00)
[2024-10-17 13:03] LABS: Bilirubin,Urine Negative (Negative); Color,Urine Yellow; Glucose,Urine (UA) 250 mg/dL (Negative); Ketones,Urine Negative (Negative); Leukocyte Esterase,Urine Negative /uL (Negative); PH,Urine 6.0 (5.0-9.0); Protein,Urine Negative (Negative); Specific Gravity,Urine 1.010 (1.000-1.035); Urobilinogen,Urine Normal
[2024-10-17] MEDS: 0.9 % SODIUM CHLORIDE 10 ML SYRINGE IV SCH (14:56)
[2024-10-17] MEDS ORDERED: METHOCARBAMOL 500 MG TABLET PO PRN (15:04)
[2024-10-17] MEDS ORDERED: DIAZEPAM 2 MG TABLET PO PRN (15:04)
[2024-10-17] MEDS ORDERED: SCOPOLAMINE 1 PATCH PATCH TD PRN (15:04)
[2024-10-17] MEDS ORDERED: LIDOCAINE 4% TOP PATCH TOPICAL PRN (15:14)
[2024-10-17 15:35] LABS: Thyroid Stimulating Hormone 5.41 uIU/mL (0.27-5.01)
[2024-10-17 16:08] LABS: HDL Cholesterol 39 mg/dL (>40); LDL Cholesterol,Calculated 130 mg/dL (<100); Triglycerides 171 mg/dL (<150)
[2024-10-17 16:14] LABS: Estimated Average Glucose(eAG) 200 mg/dL; Hemoglobin A1C 8.6 % Hgb (4.0-6.0)
[2024-10-17] MEDS: RIVAROXABAN 20 MG TABLET PO SCH (16:57)
[2024-10-17] MEDS: INSULIN LISPRO 1 UNIT/0.01 ML UNIT SQ SCH (16:58)
[2024-10-18 06:29] LABS: Basophils # (Auto) 0.03 K/mcL (0.00-0.30); Basophils % (Auto) 0.5 % (0.0-2.0); Eosinophils # (Auto) 0.19 K/mcL (0.00-0.70); Eosinophils % (Auto) 3.3 % (0.0-7.0); Hematocrit 42.2 % (34.1-44.9); Hemoglobin 14.2 g/dL (11.2-15.7); Lymphocytes # (Auto) 1.48 K/mcL (1.50-4.80); Lymphocytes % (Auto) 26.1 % (15.5-49.0); Mean Corpuscular HGB Conc 33.6 g/dL (31.0-36.0); Monocytes # (Auto) 0.69 K/mcL (0.10-0.90); Monocytes % (Auto) 12.1 % (1.0-12.0); Neutrophils % (Auto) 57.8 % (38.0-78.0); Platelet Count 134 K/mcL (140-440); RBC 4.62 M/mcL (3.59-5.38); WBC 5.7 K/mcL (4.5-11.0)
[2024-10-18] MEDS: LEVOTHYROXINE 125 MCG TABLET PO SCH (07:20)
[2024-10-18 07:55] LABS: ALT/SGPT 25 U/L (<40); AST/SGOT 23 U/L (<32); Albumin 3.8 gm/dL (3.2-5.2); Albumin/Globulin Ratio 1.5 (1.0-2.3); Alkaline Phosphatase 90 U/L (39-117); Anion Gap 12.0 (8.0-16.0); Bilirubin,Direct 0.2 mg/dL (<0.3); Bilirubin,Total 0.6 mg/dL (0.1-1.0); Blood Urea Nitrogen 15 mg/dL (8-23); Calcium 9.1 mg/dL (8.6-10.4); Carbon Dioxide 25 mmol/L (22-30); Chloride 102 mmol/L (96-108); Globulin 2.5 gm/dL (2.2-3.7); Glucose 182 mg/dL (70-105); Phosphorous 3.3 mg/dL (2.5-4.5); Potassium 4.0 mmol/L (3.3-5.1); Sodium 139 mmol/L (133-145); Triglycerides 174 mg/dL (<150); Uric Acid 4.7 mg/dL (2.5-8.0)
[2024-10-18] MEDS: CLOPIDOGREL 75 MG TABLET PO SCH (10:14)
[2024-10-18] MEDS: MONTELUKAST 10 MG TABLET PO SCH (10:14)
[2024-10-18] MEDS: INSULIN GLARGINE, HUMAN 1 UNIT/0.01 ML SQ SCH (10:17)
[2024-10-18 12:31] VITALS: TEMP 97.5; O2SAT 96
[2024-10-18] MEDS: ACETAMINOPHEN 325 MG TABLET PO PRN (13:00)
[2024-10-24] MEDS ORDERED: [UNRECOGNIZED DRUG - OTHER] PO SCH (09:00)
[2024-10-24] MEDS ORDERED: ERGOCALCIFEROL 1250 MCG PO SCH (09:00)
== END 2024-10-18 13:30 | disposition home health service (06) ==
LOC: ED 07:48 → MEDSUR 07:48
PROVIDERS: ADMIT Student in an Organized Health Care Education/Training Program; ATTEND Student in an Organized Health Care Education/Training Program

== ENCOUNTER 2024-12-17 11:11 | Inpatient (IN) ==
[2024-12-17] MEDS: 0.9 % SODIUM CHLORIDE 500 ML IV ONE (11:46)
[2024-12-17 12:07] LABS: Basophils # (Auto) 0.04 K/mcL (0.00-0.30); Basophils % (Auto) 0.6 % (0.0-2.0); Eosinophils # (Auto) 0.27 K/mcL (0.00-0.70); Eosinophils % (Auto) 4.0 % (0.0-7.0); Hematocrit 42.8 % (34.1-44.9); Hemoglobin 14.1 g/dL (11.2-15.7); Lymphocytes # (Auto) 1.50 K/mcL (1.50-4.80); Lymphocytes % (Auto) 22.2 % (15.5-49.0); Mean Corpuscular HGB Conc 32.9 g/dL (31.0-36.0); Monocytes # (Auto) 0.58 K/mcL (0.10-0.90); Monocytes % (Auto) 8.6 % (1.0-12.0); Neutrophils % (Auto) 64.5 % (38.0-78.0); Platelet Count 162 K/mcL (140-440); RBC 4.57 M/mcL (3.59-5.38); WBC 6.8 K/mcL (4.5-11.0)
[2024-12-17 12:32] LABS: Anion Gap 8.0 (8.0-16.0); Blood Urea Nitrogen 14 mg/dL (8-23); Calcium 10.1 mg/dL (8.6-10.4); Carbon Dioxide 29 mmol/L (22-30); Chloride 103 mmol/L (96-108); Glucose 251 mg/dL (70-105); Potassium 4.1 mmol/L (3.3-5.1); Sodium 140 mmol/L (133-145)
[2024-12-17] MEDS ORDERED: SENNOSIDES 1 TABLET PO PRN (17:23)
[2024-12-17] MEDS ORDERED: DEXTROSE 31 GM ORAL.SUSP PO PRN (17:23)
[2024-12-17] MEDS ORDERED: IPRATROPIUM/ALBUTEROL 3 ML AMPUL.NEB NEB PRN (17:23)
[2024-12-17] MEDS ORDERED: DEXTROSE 50% 50 ML VIAL IV PRN (17:23)
[2024-12-17] MEDS ORDERED: ONDANSETRON 4 MG/2 ML VIAL IV PRN (17:23)
[2024-12-17 18:22] LABS: Thyroid Stimulating Hormone 1.11 uIU/mL (0.27-5.01)
[2024-12-17] MEDS: MELATONIN 3 MG TABLET PO SCH (22:13)
[2024-12-17] MEDS: INSULIN LISPRO 1 UNIT/0.01 ML UNIT SQ SCH (22:13)
[2024-12-17] MEDS: 0.9 % SODIUM CHLORIDE 10 ML SYRINGE IV SCH (22:16)
[2024-12-18 06:19] LABS: Basophils # (Auto) 0.03 K/mcL (0.00-0.30); Basophils % (Auto) 0.4 % (0.0-2.0); Eosinophils # (Auto) 0.20 K/mcL (0.00-0.70); Eosinophils % (Auto) 2.6 % (0.0-7.0); Hematocrit 41.7 % (34.1-44.9); Hemoglobin 14.0 g/dL (11.2-15.7); Lymphocytes # (Auto) 1.52 K/mcL (1.50-4.80); Lymphocytes % (Auto) 20.1 % (15.5-49.0); Mean Corpuscular HGB Conc 33.6 g/dL (31.0-36.0); Monocytes # (Auto) 0.75 K/mcL (0.10-0.90); Monocytes % (Auto) 9.9 % (1.0-12.0); Neutrophils % (Auto) 67.0 % (38.0-78.0); Platelet Count 149 K/mcL (140-440); RBC 4.46 M/mcL (3.59-5.38); WBC 7.6 K/mcL (4.5-11.0)
[2024-12-18 06:32] LABS: ALT/SGPT 24 U/L (<40); AST/SGOT 20 U/L (<32); Albumin 3.6 gm/dL (3.2-5.2); Albumin/Globulin Ratio 1.4 (1.0-2.3); Alkaline Phosphatase 93 U/L (39-117); Anion Gap 9.0 (8.0-16.0); Bilirubin,Direct 0.2 mg/dL (<0.3); Bilirubin,Total 0.5 mg/dL (0.1-1.0); Blood Urea Nitrogen 14 mg/dL (8-23); Calcium 9.1 mg/dL (8.6-10.4); Carbon Dioxide 27 mmol/L (22-30); Chloride 103 mmol/L (96-108); Globulin 2.5 gm/dL (2.2-3.7); Glucose 212 mg/dL (70-105); Phosphorous 3.1 mg/dL (2.5-4.5); Potassium 4.1 mmol/L (3.3-5.1); Sodium 139 mmol/L (133-145); Triglycerides 228 mg/dL (<150); Uric Acid 3.6 mg/dL (2.5-8.0)
[2024-12-18] MEDS: RIVAROXABAN 20 MG TABLET PO SCH (08:39)
[2024-12-18] MEDS: CETIRIZINE 10 MG TABLET PO SCH (12:26)
[2024-12-18] MEDS: diphenhydrAMINE 50 MG/ML VIAL IV ONE (12:27)
[2024-12-18] MEDS: ATORVASTATIN 40 MG TABLET PO SCH (21:50)
[2024-12-19 06:43] LABS: Basophils # (Auto) 0.02 K/mcL (0.00-0.30); Basophils % (Auto) 0.4 % (0.0-2.0); Eosinophils # (Auto) 0.17 K/mcL (0.00-0.70); Eosinophils % (Auto) 3.5 % (0.0-7.0); Hematocrit 42.4 % (34.1-44.9); Hemoglobin 14.2 g/dL (11.2-15.7); Lymphocytes # (Auto) 1.37 K/mcL (1.50-4.80); Lymphocytes % (Auto) 28.4 % (15.5-49.0); Mean Corpuscular HGB Conc 33.5 g/dL (31.0-36.0); Monocytes # (Auto) 0.49 K/mcL (0.10-0.90); Monocytes % (Auto) 10.2 % (1.0-12.0); Neutrophils % (Auto) 57.5 % (38.0-78.0); Platelet Count 158 K/mcL (140-440); RBC 4.59 M/mcL (3.59-5.38); WBC 4.8 K/mcL (4.5-11.0)
[2024-12-19 07:09] LABS: ALT/SGPT 23 U/L (<40); AST/SGOT 21 U/L (<32); Albumin 3.7 gm/dL (3.2-5.2); Albumin/Globulin Ratio 1.5 (1.0-2.3); Alkaline Phosphatase 89 U/L (39-117); Anion Gap 12.0 (8.0-16.0); Bilirubin,Direct 0.2 mg/dL (<0.3); Bilirubin,Total 0.6 mg/dL (0.1-1.0); Blood Urea Nitrogen 15 mg/dL (8-23); Calcium 9.1 mg/dL (8.6-10.4); Carbon Dioxide 27 mmol/L (22-30); Chloride 101 mmol/L (96-108); Globulin 2.5 gm/dL (2.2-3.7); Glucose 207 mg/dL (70-105); Phosphorous 2.7 mg/dL (2.5-4.5); Potassium 4.0 mmol/L (3.3-5.1); Sodium 140 mmol/L (133-145); Triglycerides 194 mg/dL (<150); Uric Acid 4.1 mg/dL (2.5-8.0)
[2024-12-19] MEDS: LOSARTAN 50 MG TABLET PO SCH (08:30)
[2024-12-19] MEDS: LEVOTHYROXINE 125 MCG TABLET PO SCH (08:31)
[2024-12-19] MEDS: MONTELUKAST 10 MG TABLET PO SCH (08:31)
[2024-12-19] MEDS: POLYETHYLENE GLYCOL 3350 17 GM PACKET PO PRN (16:16)
[2024-12-20 07:02] LABS: Basophils # (Auto) 0.03 K/mcL (0.00-0.30); Basophils % (Auto) 0.4 % (0.0-2.0); Eosinophils # (Auto) 0.16 K/mcL (0.00-0.70); Eosinophils % (Auto) 2.2 % (0.0-7.0); Hematocrit 41.0 % (34.1-44.9); Hemoglobin 13.9 g/dL (11.2-15.7); Lymphocytes # (Auto) 1.43 K/mcL (1.50-4.80); Lymphocytes % (Auto) 19.3 % (15.5-49.0); Mean Corpuscular HGB Conc 33.9 g/dL (31.0-36.0); Monocytes # (Auto) 0.82 K/mcL (0.10-0.90); Monocytes % (Auto) 11.1 % (1.0-12.0); Neutrophils % (Auto) 66.9 % (38.0-78.0); Platelet Count 154 K/mcL (140-440); RBC 4.48 M/mcL (3.59-5.38); WBC 7.4 K/mcL (4.5-11.0)
[2024-12-20 07:16] LABS: ALT/SGPT 22 U/L (<40); AST/SGOT 22 U/L (<32); Albumin 3.7 gm/dL (3.2-5.2); Albumin/Globulin Ratio 1.5 (1.0-2.3); Alkaline Phosphatase 88 U/L (39-117); Anion Gap 11.0 (8.0-16.0); Bilirubin,Direct 0.3 mg/dL (<0.3); Bilirubin,Total 0.6 mg/dL (0.1-1.0); Blood Urea Nitrogen 16 mg/dL (8-23); Calcium 9.0 mg/dL (8.6-10.4); Carbon Dioxide 25 mmol/L (22-30); Chloride 104 mmol/L (96-108); Globulin 2.5 gm/dL (2.2-3.7); Glucose 200 mg/dL (70-105); Phosphorous 2.9 mg/dL (2.5-4.5); Potassium 3.9 mmol/L (3.3-5.1); Sodium 140 mmol/L (133-145); Triglycerides 164 mg/dL (<150); Uric Acid 3.9 mg/dL (2.5-8.0)
[2024-12-20 07:17] VITALS: TEMP 97.8; O2SAT 97
== END 2024-12-20 11:14 | DRG 884 ==
LOC: ED 11:11 → MEDSUR 17:11
PROVIDERS: ADMIT Student in an Organized Health Care Education/Training Program; ATTEND Student in an Organized Health Care Education/Training Program